=== PATIENT | male | born 1950 | race Caucasian/White ===

== ENCOUNTER 2018-10-11 07:31 | Day surgery (SDC) | payer MEDICARE, BC, SELFPAY ==
[2018-10-06 14:09] VITALS: BMI 24.9
--- NOTE | 2018-10-10 20:58 | PCM.HP.BLA ---
History and Physical Date of Admission: 10/11/18 HISTORY OF PRESENT ILLNESS 68 year old man presents with a lesion on his left frontal scalp that had increased in size over the last several months and had become more raised in configuration. It was recently biopsied on 09/20/18. Pathology showed a basal cell carcinoma, nodular and micronodular type, with positive margins. He denies any pain in his healing scar left frontal scalp. He denies any bleeding. He denies any fever. He denies any trauma. He presents at this time for further evaluation and treatment. PAST MEDICAL HISTORY Actinic keratosis Adenomatous colon polyp Basal cell carcinoma of skin of scalp Skin lesion PAST SURGICAL HISTORY cholecystectomy rectal polypectomy ALLERGIES No Known Allergies MEDICATIONS None FAMILY HISTORY Brother - Obesity, Hypertension, Melanoma, CAD (coronary artery disease) Mother - Breast cancer, Hypertension SOCIAL HISTORY Smoking Status: Former smoker alcohol intake: never substance use type: does not use additional social history: CAFFEINE USE : COFFEE REVIEW OF SYSTEMS General - Denies fever, fatigue, and weight loss. Eyes - Denies cataracts and glaucoma. ENT - Denies nasal congestion and sore throat. Endocrine - Denies excessive thirst and urination. Skin - Had enlarging lesion left frontal scalp that was biopsied on 09/20/18 and it was a basal cell carcinoma. He has a family history of melanoma. Musculoskeletal - Denies joint pain, joint stiffness, weakness of muscles and joints, back pain, and arthritis. Neuro - Denies headaches. Cardiovascular - Denies chest pain, fatigue, and shortness of breath with exertion. Psych - Denies anxiety and depression. Respiratory - Denies chronic cough and shortness of breath. Gastrointestinal - Denies nausea, vomiting, diarrhea, and constipation. Hematologic - Denies abnormal bruising and bleeding. Genitourinary - Denies hematuria and urinary frequency. PHYSICAL EXAMINATION General - Alert and Oriented. HEENT - PERRL. EOMI. Throat is clear. On the left frontal scalp is a healing scar after excision of basal cell carcinoma. Scar measures 1 cm. No ulceration. Scar is nontender. Neck - Supple and nontender. No cervical adenopathy. No suspicious lesions noted. Lungs - Clear to auscultation. Heart - Regular rate and rhythm. Abdomen - Soft and nondistended. Extremities - FROM. No axillary adenopathy. Radial pulses are palpable. No suspicious lesions noted. Neuro - CN II-XII grossly intact. Psych - Normal mood and affect. ASSESSMENT 1. 1 cm basal cell carcinoma scar, nodular and micronodular type, left frontal scalp. 2. Family history of melanoma. 3. Former smoker. PLAN Recommend excision of this basal cell carcinoma scar left frontal scalp and send it to Pathology for analysis to rule out carcinoma at the margins. Other option is radiation therapy. Patient is not interested in radiation therapy at this time. He wants to proceed with surgical excision. Reconstruction will be with a probable skin graft or possible skin flap. Surgery will be done on an outpatient basis under local anesthesia and IV sedation. Patient was informed of the risks and complications of the procedure including alternatives to surgery. These were discussed with the patient personally. Patient voices understanding and wishes to proceed. Some of the risks and complications were included in a form from the [employer]. After healing has occurred, he will need TBSE every 6-12 months. He states his PCP will do the TBSE.
[2018-10-11 07:56] VITALS: BP 126/87; PULSE 67; RESP 18; TEMP 36.6; O2SAT 100; BMI 26.4
--- NOTE | 2018-10-11 09:10 | LES_PTH ---
PATIENT: TIA JIMÉNEZ LOC: [facility] – [place] U#:[id number] AGE/SX: 68/M ROOM: RE10/11/[address]: Dr. Nabil Mallory MD : 1950 BED: DIS: 10/11/2018 SPEC #: [id number] RECD: 10/11/18 12:45 STATUS: BROOKE CHARLEEN #: [id number] CY: 10/11/18 09:[address]: Nabil Mallory DEPT: SURGICAL PATHOLOGY RECD BY: Tyrese Mary ENTERED: 10/11/18 13:47 SP TYPE: Lesion OTHR DR: Dr. Tia Marvin MD Tissues: Skin of scalp, NOS Procedures: Surgery Specimen Level IV HEADER OPERATION: Excision basal cell cancer left frontal scalp with SG, poss skin flap PRE-OP DIAGNOSIS: 1 cm basal cell carcinoma scar, nodular and micronodular type, left frontal scalp TISSUE SUBMITTED: 1 cm basal cell carcinoma scar, nodular and micronodular type, left frontal scalp MICROSCOPIC DIAGNOSIS Left frontal scalp lesion, excisional biopsy: Basal cell carcinoma, superficial nodular and cystic, completely excised. Actinic change and solar elastosis. Cicatrix. See comment. AM:fausto 10/12/18 COMMENT The lesion measures 4 mm in greatest dimension. The lesion is located <1 mm from the 9 through 12 o'clock deep margin of excision. MICROSCOPIC DESCRIPTION Slides are reviewed. GROSS DESCRIPTION Received in fixative is one container labeled with the patient's name and designated 1 cm basal cell carcinoma scar, nodular and micronodular type near frontal scalp, suture at 12 o'clock. The specimen consists of a poli-shaped piece of whiteside-white skin measuring 2 x 1 cm and up to 0.3 cm in thickness. The specimen is inked as follows: 12 to 3 o'clock - black, 3 to 6 o'clock - blue, 6 to 9 o'clock - green and 9 to 12 o'clock - yellow. The specimen is serially sectioned and submitted entirely in two cassettes. Cassette 1 contains the 3 and 9 o'clock tip. / SJ:fausto 10/11/18 TC:0 CPT: 67898
[2018-10-11] MEDS: Mupirocin Ointment 22gm Tube 1 APPLIC (10:06)
--- NOTE | 2018-10-11 10:19 | OP.PCM_ITS ---
Report of Operation Date of Procedure: 10/11/18 Pre-Operative Diagnosis: 1. 1 cm basal cell carcinoma scar, nodular and m icronodular type, left frontal scalp. 2. Family history of melanoma. 3. Former smoker. Post-Operative Diagnosis: Same. Surgery/Procedure Performed:: Excision 1 cm basal cell carcinoma scar, nodular and micronodular type, left frontal scalp with rhomboid transposition skin flap reconstruction (6.48 cm2). Description of Surgical Findings:: 68 year old man presents with a lesion on his left frontal scalp that had increased in size over the last several months and had become more raised in configuration. It was recently biopsied on 09/20/18. Pathology showed a basal cell carcinoma, nodular and micronodular type, with positive margins. He denies any pain in his healing scar left frontal scalp. He denies any bleeding. He denies any fever. He denies any trauma. Patient was informed of the risks and complications of the procedure including alternatives to surgery. These were discussed with the patient personally. Patient voices understanding and wishes to proceed. Some of the risks and complications were included in a form from the [employer] [employer]. 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 Drains: None. Estimated Blood Loss (mL): 5 ml. Description of Procedure: Patient was taken to OR in supine position and was placed under general anesthesia. The left frontal scalp and neck areas were prepped and draped in the usual fashion. SCD's were placed for DVT prophylaxis. Perioperative antibiotics were given intravenously. Using xylocaine with epinephrine, the basal cell carcinoma scar was infiltrated. I marked out the basal cell carcinoma scar left frontal scalp with a 4 mm margin in all directions as a rhomboid design making this a 1.8 cm excision lesion. After waiting 5 minutes for the anesthetic to take effect, incisions were made into the subcutaneous tissue. A suture was marked at the 12 oclock position for pathology orienta tion. After the basal cell carcinoma scar was excised, it was sent to Pathology for analysis to rule out carcinoma at the margins. I felt the surrounding scalp skin was loose enough for a rhomboid flap reconstruction, so I marked out a rhomboid flap adjacent to the defect. Incisions were made and the flap was elevated on a subcutaneous pedicle at the level of the galea and transposed into the defect with minimal tension and minimal distortion. Hemostasis was obtained with electrocautery. The flap was then closed in the wound defect with 5-0 Monocryl interrupted sutures for the deep dermis and subcutaneous tissue. The scalp skin was approximated with 5-0 Prolene simple interrupted and vertical mattress interrupted sutures. Antibiotic ointment was applied to the incision followed by a gauze dressing. At the end of the procedure, there was no vascular compromise on the flap and no evidence of hematoma. The size of the defect and the size of the flap required to close the defect was 6.48 cm2. Patient tolerated the procedure well and was sent to PACU in satisfactory condition. Patient will be sent home on antibiotics and pain medication. He will keep his head elevated during the initial postop period. Patient will followup in a week for a wound check and for discussion of the pathology report. I will remove the sutures in 1-2 weeks. Grafts/Implants Used: None. - Complications None. - Admit VTE Documentation VTE Present on Admission: No VTE Mechan Device Prophylaxis: SCD's VTE Pharm Prophylaxis ordered?: No Code Visit Surgery Charges CPT - 67717 ICD-10 - C44.41, Z80.8, Z87.891
[2018-10-11 10:23] VITALS: BP 126/87; BP 129/79; PULSE 70; RESP 18; TEMP 36.3; O2SAT 98
[2018-10-11 10:30] VITALS: BP 126/87; BP 130/86; PULSE 71; RESP 18; O2SAT 99
--- NOTE | 2018-10-11 10:32 | DCINST_ITS ---
You will use the following diet at home:: No restrictions Discharge Activity: May not drive while taking narcotic pain medications., May Shower - in two weeks., - - keep head elevated. no heavy lifting. May shower in (days): 2 May resume sexual activity in: No Restrictions Weight Bearing Status: Weight bearing as tolerated Lifting Restrictions: 20 lbs. Keep extremity elevated above heart level: - - elevate head. Call your doctor if your incision/area has: Continuous Slow Oozing, Sudden Increased Bleeding, Increased Pain/ Swelling, Increased Redness, Foul Smelling Discharge, Swelling at the incision site Call your doctor if you observe: Fever of 101 or Higher, Coldness, Increased Pain, Shortness of breath, Chest pain, Calf discomfort, Uncontrolled pain Suture Line Care: - - apply antibiotic ointment to suture line daily. Change Dressing in (Days):: 2 Cleanse incision/area with: - - may get incision wet in the shower in two days. Allergies/Adverse Reactions: Allergies No Known Allergies Allergy (Verified 10/11/18 07:53) Medications to take at Discharge Clindamycin HCl [Cleocin] 300 mg PO TID #12 cap 10/11/18 Lactobacillus Acidophilus/Fos [Acidophilus Probiotic Tablet] 1 ea PO BID #10 tab 10/11/18 Oxycodone HCl/Acetaminophen [Percocet 5/325] 1 tab PO TID 7 Days #20 tab 10/11/18 The following prescriptions were given: Lactobacillus Acidophilus/Fos [Acidophilus Probiotic Tablet] 1 ea PO BID #10 tab Clindamycin HCl [Cleocin] 300 mg PO TID #12 cap Oxycodone HCl/Acetaminophen [Percocet 5/325] 1 tab PO TID 7 Days #20 tab Primary Care Physician: Wilfred Marvin MD [Primary Care Provider] - Test Results: Test results from this visit will be discussed in further detail at your follow- up appointment, if applicable. Please Follow Up With: Nabil Mallory MD When: one week. call [phone] for appt. Proposed Discharge Date: 10/11/18
[2018-10-11 10:41] VITALS: BP 122/84; BP 126/87; PULSE 69; RESP 18; TEMP 36.1; O2SAT 98
[2018-10-11 11:38] VITALS: BP 118/88; BP 126/87; PULSE 67; RESP 16; TEMP 36.9; O2SAT 98
== END 2018-10-11 11:40 | disposition home or self-care (01) ==
LOC: SDC 07:32 → AC 07:34
PROVIDERS: Family Provider Family Medicine; PCP Family Medicine; Referring Provider Surgery; Visit Provider Surgery
PROC: (CPT 14020; principal; 2018-10-11 08:55)
DX: C44.41 Basal cell carcinoma of skin of scalp and neck (principal); Z80.8 Family history of malignant neoplasm of other organs or systems; Z87.891 Personal history of nicotine dependence
CPT/HCPCS: 14020; 88305; J7120; J2405